=== PATIENT | female | born 1970 | race Caucasian/White ===

== ENCOUNTER → 2020-10-26 | Outpatient (CLI) | payer OTHER ==
[~2020-10-26] VITALS: Ht 15.2 cm; Wt 99.7 kg
[~2020-10-26] MED LIST: ALEVE220 M1 PO; LEVO-T75 MCG PO; NABUMETONE 500500 M2 PO
[2020-10-26 08:59] VITALS: BP 124/93
--- NOTE | 2020-10-26 09:13 | NUR ---
Pain Clinic Assessment: 1. History of Osteoarthritis: NOT SURE NO IMAGING YET History of Rheumatoid Arthritis: NO 2. Height: 5 ft. 6 in. 15.2 cm. Weight: 219.8 lb. oz. 99.701 kg. Patient's BMI: 4315.3 3. Vital Signs: BP: 124/93 Pulse: 91 Resp: 16 Temp: 02 Sat: 96 ECG Mon: 4. Pain Intensity: 4 5. Fall Risk: Dizziness: N Needs help standing or walking: N Fallen in the last 3 months: N Fall risk comments: 6. Patient on Blood Thinner: None 7. History of Hypertension: N 8. Opioid Therapy greater than 6 weeks: N Opiate Contract Signed: 9. Risk Assessment Tool Provided: LOW-3 10. Functional Assessment Tool: 56/70 11. Recreational Drug Use: Never Drug Type: Tobacco Use: Never Smoker Tobacco Type: Amount or Packs/day: How Many Years: Alcohol Use: Yes Frequency: Monthly Quant: 1
--- NOTE | 2020-11-02 08:22 | HPC ---
[facility] [place] [address] PAIN MANAGEMENT CONSULTATION Name: MAZIN BALTAZAR Room #: REG Estevan Kan#: [id number] Admission: 10/26/20 Attend Phys: Pavan Lowery DO Discharge: Date of : 70 Report #: [id number] THIS REPORT FOR: cc: FAM - Family physician unknown FAM - Family physician unknown Pavan Lowery DO ~ DOC #: [id number] cc: ELVA Hanson DO DATE OF SERVICE: 10/26/2020 DATE OF SERVICE: 10/26/2020 CHIEF COMPLAINT: Right low back pain, right foot pain. HISTORY OF PRESENT ILLNESS: As you know, the patient is a very pleasant 50-year-old female who reports acute onset of low back pain, right sacroiliac joint pain, and right foot pain, which began summer. The patient denies specific injury or trauma. She reports she had had physical therapy in late March or April for 3 months. This provided some improvement. She is continuing to do home exercises and working out at a home gym, but even with this treatment, her symptoms continue. She sought evaluation through neurosurgery and advised to try a conservative treatment approach before moving forward with any type of surgical options. The patient was subsequently referred to our clinic to discuss treatment options. The patient reports today her pain is intermittent, mainly with standing or sitting for long periods of time. The pain is described as more of an aching sensation. She places current pain score 4/10, daily average anywhere from 0-7/10, worst pain has been is 8/10. The patient has palpatory tenderness directly over the right sacroiliac joint. Deep palpation in area causes intensification of pain. She is able to localize symptoms to that region. She has been referred to our service to discuss treatment options for this chronic right low back symptom that began without inciting injury or trauma. PAST MEDICAL HISTORY: 1. Chronic anemia. 2. Hypertension. 3. Hypothyroidism. PAST SURGICAL HISTORY: section in 1994, 1996, and 2004; tonsillectomy in 1990. SOCIAL HISTORY: The patient denies tobacco use. Denies IV or illicit drug use. Admits to an occasional alcohol beverage. She is employed as a registered nurse. She is working, not receiving workmen's compensation, nor is she trying [address] [address] PAIN MANAGEMENT CONSULTATION Name: GIOVANNYJOHN Room #: REG PRASANTH Kan#: [id number] Admission: 10/26/20 Attend Phys: Pavan Lowery DO Discharge: Date of : 70 Report #: [id number] to obtain disability benefits. Not in litigation in regards to pain. She is unaccompanied at today's visit. REVIEW OF SYSTEMS: Positive for weight gain, wearing corrective eyewear, lactulose intolerance with abdominal pain, thyroid disease requiring medication management, chronic anemia, low back pain, right buttock pain. All other review of systems negative per 12-point review of systems other than those listed in history of present illness. Pain impact score 56/70 indicating severe interference of daily activities secondary to pain. ALLERGIES: SULFA. CURRENT MEDICATIONS: Naproxen sodium 220 mg once a day, levothyroxine 75 mcg per day, Mirena IUD. IMAGING: No imaging available. PHYSICAL EXAMINATION: VITAL SIGNS: Blood pressure 124/93, pulse 91, respiratory rate 16 and unlabored. The patient is 96% on room air. Height 5 feet 6 inches tall, weight 219.8 pounds, BMI calculated and on chart. HEENT: Normocephalic, atraumatic. Pupils equal, round, and reactive to light. Extraocular muscles are intact. Sclerae nonicteric without injection. She is wearing a mask in compliance with COVID-19 regulations. Speech is normal. She is deemed a good historian. LUNGS: Clear. No wheezing, rhonchi, or rales. CARDIOVASCULAR: Regular. No appreciable gallop, no rub. ABDOMEN: Soft, mildly obese, normoactive bowel sounds. EXTREMITIES: Show no clubbing, no cyanosis, and no edema. MUSCULOSKELETAL: Palpatory tenderness is noted over the right sacroiliac joint, negative left. Deep palpation of this area causes intensification of pain with radiation down the lateral portion of the thigh consistent with an SI joint dysfunction. Seated straight leg raising negative. Supine straight leg raising negative. TU's test is negative for intrinsic hip pathology, positive for SI joint pain. Thigh thrust maneuver on the right positive for pain. Eugenio's test positive on the right. Positive for right SI joint pain. There is noted a leg-length discrepancy with right leg compared to the left leg with a 1 cm differential. Gait is mildly antalgic favoring right lower extremity over left. ASSESSMENT: 1. Right sacroiliac joint dysfunction. 2. Chronic axial back pain. 3. Pelvic unleveling. 4. A leg length discrepancy. PLAN: [facility] [address] [place] [address] PAIN MANAGEMENT CONSULTATION Name: MAZIN BALTAZAR Room #: REG CLI Thomas.#: [id number] Admission: 10/26/20 Attend Phys: Pavan Lowery DO Discharge: Date of : 70 Report #: [id number] 1. Based on today's physical exam, the history the patient has provided, the distribution of symptoms the patient is experiencing, and the descriptions the patient uses in regards to the pain, it would appear she is suffering from sacroiliac joint dysfunction secondary to a leg length discrepancy. The patient and I discussed at length the treatment options we have for SI joint dysfunction as well as the leg length discrepancy that is noted on physical exam today. The following was discussed with the patient. We discussed physical therapy, stretching exercises, manipulation of the pelvis and SI joint with both active and passive exercise program. We discussed medication management utilizing anti-inflammatory medication on a consistent basis and the use of pain medication on a p.r.n. basis. We discussed intra-articular SI joint injection as well as fusion of the sacroiliac joints, either percutaneously or a surgical approach. We also discussed leg length discrepancy with the patient today, which would require an orthotic to be implanted with a progressive increase in lift height leveling out of the pelvis area and improving the sacroiliac joint pain. After reviewing the risks and benefits of all the proposed treatment options, the patient chose to begin with conservative treatment course. 2. The patient was provided a prescription of nabumetone 500 mg dose one tab p.o. t.i.d. I have recommended that patient take this consistently. She will watch for dyspepsia, worsening of blood pressure, or lower extremity edema with use of the medication. I have given the patient #90 tablets with 2 refills. If the patient finds this effective for pain control, she should reduce to the lowest dose possible to maintain analgesic benefit. 3. We will be sending the patient for a referral for podiatry to evaluate and treat for orthotics to correct leg length discrepancy and ongoing foot pain. She will follow up with podiatry at her earliest convenience. We recommend that she see them in regards to orthotics, as they can provide the leg length changes necessary over a period of time, but also specialize the orthotic to the patient so that she can improve her bilateral foot pain. 4. We will begin the process of authorization to have the patient be able to undergo right sacroiliac joint injection under fluoroscopic guidance. We will begin this process immediately. It could take anywhere from 4-7 working days. We are hopeful that this process will be completed quickly and the patient can undergo the injection. The patient will contact our clinic if she wishes to delay this option for more conservative approach. 5. We recommend the patient follow up with either her physical therapist or she could be seen at [facility] for pelvic manipulation and SI joint manipulation. This could be quite beneficial. She will follow up with her physical therapist first. If they do not offer this as a treatment option, she can contact [facility] for an appointment to be seen. It does not require a referral. 6. We wish to thank nurse practitioner, Lou Lima, for the opportunity to see the patient in consultation. We will keep you apprised of response to treatment as we address right sacroiliac joint dysfunction and leg length discrepancies. Again, we wish to thank you for the opportunity to see the [address] [address] PAIN MANAGEMENT CONSULTATION Name: MAZIN BALTAZAR Room #: REG PRASANTH Kan#: [id number] Admission: 10/26/20 Attend Phys: Pavan Lowery DO Discharge: Date of : 70 Report #: [id number] patient in consultation. Pavan Lowery DO JEJ/VIS <ELECTRONICALLY SIGNED> By: Pavan Lowery DO 11/02/20 0822 [id number] Pavan Lowery DO /
== END ==
LOC: PAIN 08:31
PROVIDERS: ATTEND Anesthesiology Pain Medicine
DX: M54.5 Low back pain (principal); M79.671 Pain in right foot; I10 Essential (primary) hypertension; E03.9 Hypothyroidism, unspecified; Z88.2 Allergy status to sulfonamides; Z79.899 Other long term (current) drug therapy; Z79.891 Long term (current) use of opiate analgesic

== ENCOUNTER → 2021-02-21 | Outpatient (CLI) | payer OTHER ==
[~2021-02-21] VITALS: Ht 167.6 cm; Wt 101.6 kg
--- NOTE | ~2021-02-21 | HPC ---
[facility] [address] [place] [place] [address] PAIN MANAGEMENT CONSULTATION Name: MAZIN BALTAZAR Room #: REG Estevan Kan#: [id number] Admission: 02/21/21 Attend Phys: Pavan Lowery DO Discharge: Date of : 70 Report #: [id number] THIS REPORT FOR: cc: BRAYDEN - Family physician unknown FAM - Family physician unknown Pavan Lowery DO ~ cc: Lou Lima DATE OF SERVICE: 02/21/2021 REFERRING NURSE PRACTITIONER: Lou Lima NP CHIEF COMPLAINT: Right low back pain and right foot pain. HISTORY OF PRESENT ILLNESS: As you know, the patient is a very pleasant 50-year-old female who reports acute onset of right low back pain and right foot pain began in the summer of 2019. She denies specific injury or trauma. She reports she had physical therapy late in March or 04/2020 lasting for over 3 months, but did not notice much in the way of improvement. She sought evaluation through neurosurgery who referred the patient on to our clinic to discuss interventional treatment options to address her chronic right back pain. We saw the patient in consultation on 10/26/2020, diagnosed with axial back pain due to facet arthropathy and right sacroiliac joint dysfunction. She chose to begin with medication management. We started the patient on nabumetone, which has provided some benefit. The patient returns today in followup visit to discuss other treatment options. She is placing current pain score 4-8/10. The patient denies new injury or trauma or any changes in medication management since her last visit. ALLERGIES: SULFA. CURRENT MEDICATIONS: Nabumetone 500 mg up to 3 times a day, levothyroxine 75 mcg once a day. SOCIAL HISTORY: The patient denies tobacco use. Denies IV or illicit drug use. Admits occasional alcohol beverage. She is employed as a registered nurse, working, not receiving workmen's compensation, unaccompanied today. IMAGING: No new imaging available. PHYSICAL EXAMINATION: VITAL SIGNS: Blood pressure 133/89, pulse 91, respiratory rate 16 and unlabored. The patient is 98% on room air. Height 5 feet 6 inches tall, weight 224 pounds, BMI calculated 36.2. GENERAL: Well-developed, well-nourished, well-hydrated 50-year-old female appearing stated age, pain is rated today around 4-8/10. HEENT: Normocephalic, atraumatic. Pupils equal, round and responsive. [facility] [address] [place] [address] PAIN MANAGEMENT CONSULTATION Name: MAZIN BALTAZAR Room #: REG CLI M.R.#: [id number] Admission: 02/21/21 Attend Phys: Pavan Lowery DO Discharge: Date of : 70 Report #: [id number] EXTREMITIES: Show no clubbing, no cyanosis. No appreciable edema. MUSCULOSKELETAL: Lower extremity strength equal and symmetrical, 5/5 intact to light touch from L1 through S2 dermatomes. There is palpatory tenderness over the facet joints of the lower lumbar spine, specifically on the right side. Lumbar provocation testing is met with increasing axial back pain. There is some palpatory tenderness over the SI joint, but this is greatly reduced from previous evaluation. Seated straight leg raising negative. Supine straight leg raising is negative. ASSESSMENT: 1. Chronic axial back pain due to facet arthropathy. 2. Facet arthropathy of lumbar spine. 3. Lumbosacral spondylosis without radiculopathy. 4. Right sacroiliac joint dysfunction. 5. Pelvic unleveling. 6. Chronic intractable pain. PLAN: 1. The patient returns today in followup visit to discuss options for treatment to address axial back pain located over the facet joint at L4-5 and L5-S1 on the right side. She has exquisite tenderness to palpation over this area consistent with facet arthropathy symptoms. Lumbar provocation testing is also positive for facet arthropathy pain. We discussed with the patient treatment options today. Following was discussed with the patient. 2. We discussed physical therapy, stretching exercise, core strengthening and a concerted effort at weight loss as a treatment option. We discussed continuing nonsteroidal anti-inflammatories in hopes of improving pain. We discussed intraarticular diagnostic facet injections and we also discussed medial branch nerve blocks and radiofrequency lesioning. After reviewing the risks and benefits of all proposed treatment options, the patient chose to begin with diagnostic intra-articular facet injections to be addressing the L4-L5 and L5-S1 facets on the right side. 3. The patient was advised due to third libertarian payer restrictions authorization would have to be obtained before the patient can undergo diagnostic intraarticular facet injections to address the L4-5 and L5-S1 level on the right side. We will begin that process immediately. I am hopeful this could be done quickly and the patient can return to undergo the procedure for diagnostic purposes. 4. The patient did receive a refill of her nabumetone 500 mg dose 1 tab p.o. t.i.d., given the patient #90 tablets. She will take the medication as directed. She is not to deviate from prescription parameters for the next couple of days as we await the diagnostic injection. 5. We will see the patient back in followup visit once we have achieved [address] [address] PAIN MANAGEMENT CONSULTATION Name: MAZIN BALTAZAR Room #: REG CLI Thomas.#: [id number] Admission: 02/21/21 Attend Phys: Pavan Lowery DO Discharge: Date of : 70 Report #: [id number] authorization for her to undergo a right L4-5, L5-S1 diagnostic intra-articular facet injections. By: [id number] Pavan Lowery DO /nt
[2021-02-21 13:12] VITALS: BP 133/89
--- NOTE | 2021-02-21 13:29 | NUR ---
Pain Clinic Assessment: 1. History of Osteoarthritis: NOT SURE NO IMAGING YET History of Rheumatoid Arthritis: NO 2. Height: 5 ft. 6 in. 167.6 cm. Weight: 224.0 lb. oz. 101.606 kg. Patient's BMI: 36.2 3. Vital Signs: BP: 133/89 Pulse: 91 Resp: 16 Temp: 02 Sat: 98 ECG Mon: 4. Pain Intensity: 4-8 5. Fall Risk: Dizziness: N Needs help standing or walking: N Fallen in the last 3 months: N Fall risk comments: 6. Patient on Blood Thinner: None 7. History of Hypertension: N 8. Opioid Therapy greater than 6 weeks: N Opiate Contract Signed: 9. Risk Assessment Tool Provided: LOW-3 10. Functional Assessment Tool: 56/70 11. Recreational Drug Use: Never Drug Type: Tobacco Use: Never Smoker Tobacco Type: Amount or Packs/day: How Many Years: Alcohol Use: Yes Frequency: Quant:
== END ==
LOC: PAIN 11-15 06:55
PROVIDERS: ATTEND Anesthesiology Pain Medicine
DX: G89.29 Other chronic pain (principal); M47.816 Spondylosis without myelopathy or radiculopathy, lumbar region; M47.817 Spondylosis without myelopathy or radiculopathy, lumbosacral region; M53.3 Sacrococcygeal disorders, not elsewhere classified; M95.5 Acquired deformity of pelvis

== ENCOUNTER → 2021-03-08 | Outpatient (CLI) | payer OTHER ==
[~2021-03-08] VITALS: Ht 167.6 cm; Wt 101.2 kg
[2021-03-08 08:27] VITALS: BP 128/93
--- NOTE | 2021-03-08 08:43 | NUR ---
Pain Clinic Assessment: 1. History of Osteoarthritis: NOT SURE NO IMAGING YET History of Rheumatoid Arthritis: NO 2. Height: 5 ft. 6 in. 167.6 cm. Weight: 223.2 lb. oz. 101.243 kg. Patient's BMI: 36.0 3. Vital Signs: BP: 128/93 Pulse: 86 Resp: 16 Temp: 02 Sat: 98 ECG Mon: 4. Pain Intensity: 2-8 w/activity 5. Fall Risk: Dizziness: N Needs help standing or walking: N Fallen in the last 3 months: N Fall risk comments: 6. Patient on Blood Thinner: None 7. History of Hypertension: N 8. Opioid Therapy greater than 6 weeks: N Opiate Contract Signed: 9. Risk Assessment Tool Provided: LOW-3 10. Functional Assessment Tool: 56/70 11. Recreational Drug Use: Never Drug Type: Tobacco Use: Never Smoker Tobacco Type: Amount or Packs/day: How Many Years: Alcohol Use: Yes Frequency: Quant:
--- NOTE | 2021-03-14 15:04 | HPC ---
[address] [address] PAIN MANAGEMENT CONSULTATION Name: MAZIN BALTAZAR [id number] Admission: 03/08/21 Attend Phys: Pavan Lowery DO Discharge: Date of : 70 Report #: [id number] THIS REPORT FOR: cc: FAM - Family physician unknown FAM - Family physician unknown Pavan Lowery DO ~ cc: Lou Lima NP DATE OF SERVICE: 03/08/2021 CHIEF COMPLAINT: Right low back pain. HISTORY OF PRESENT ILLNESS: As you know, the patient is a very pleasant 50-year-old female, reports acute onset of low back pain that began in summer of 2019. Denies specific injury or trauma. The patient was seen in consultation per the request of Neurosurgery on 02/21/2021, diagnosed with axial back pain due to facet arthropathy. She was established today's appointment to undergo diagnostic L4-L5, L5-S1 intraarticular facet injections under fluoroscopic guidance to address her right axial back pain. The patient indicates today her pain at up to 2-8/10 depending on activity. She has had no changes in her medication management that preclude the patient from undergoing an injection today. We have received authorization through the patient's third libertarian payer for her to undergo these diagnostic blocks. She returns today to undergo the first in the series. ALLERGIES: SULFA. CURRENT MEDICATIONS: Nabumetone 500 mg 3 times a day, levothyroxine 75 mcg per day. SOCIAL HISTORY: The patient denies tobacco. Denies IV or illicit drug use. Admits occasional alcohol beverage. She is employed as a registered nurse, working, not receiving workmen's compensation, unaccompanied today. IMAGING: No new imaging available. PHYSICAL EXAMINATION: VITAL SIGNS: Blood pressure 120/93, pulse is 86, respiratory rate 16 and unlabored. The patient 98% on room air. Height 5 feet 6 inches tall, weight 223.8 pounds, BMI calculated 36.0. GENERAL: Well-developed, well-nourished, well-hydrated exogenously obese 50-year-old female appearing stated age. Pain is rated anywhere from 2-8/10 depending on activity. HEENT: Normocephalic, atraumatic. She is wearing a mask in compliance with COVID-19 regulations. EXTREMITIES: Show no clubbing, no cyanosis. No appreciable edema. MUSCULOSKELETAL: Once again, the patient has palpatory tenderness over the [facility] [address] [place] [address] PAIN MANAGEMENT CONSULTATION Name: MAZIN BALTAZAR Room #: REG CL Lucius#: [id number] Admission: 03/08/21 Attend Phys: Pavan Lowery DO Discharge: Date of : 70 Report #: [id number] facet joints of the lower lumbar spine on the right. Lumbar provocation testing including rotation and lateral flexion to the right intensify pain. Negative left. There is mild palpatory tenderness over the SI joint on the right, which is present again today. Seated straight leg raising negative. Supine straight leg raising negative. Muscle bulk and tone is equal and symmetrical in lower extremities. She remains intact to light touch from L1 through S2 dermatomes. ASSESSMENT: 1. Chronic axial back pain (right sided). 2. Facet arthropathy of lumbar spine. 3. Lumbosacral spondylosis without radiculopathy. 4. Mild right sacroiliac joint dysfunction. 5. Pelvic unleveling. 6. Chronic intractable pain. PLAN: 1. The patient returns today in followup visit having received authorizations to undergo right L4-L5, L5-S1 intraarticular diagnostic facet injections under fluoroscopic guidance. The patient has been advised of the risks and the benefits of this procedure. These risks include but are not necessarily limited to bleeding, bruising, infection, worsening pain, no relief of pain, also risk of temporary or permanent muscle weakness, temporary or permanent nerve damage, possible paralysis, and . The patient states understood and wished to proceed. 2. No medication changes made at today's visit. The patient will continue current medical therapy as prior prescribed. 3. We plan to see the patient back in followup visit in 1 month. At that time, review the efficacy of these diagnostic blocks and determine whether or not further treatment will be necessary including possible medial branch nerve blocks and moving towards radiofrequency lesioning, if her symptoms were only transient in nature. We will see her back in 1 month. We will keep you apprised of response. PROCEDURE NOTE: DESCRIPTION OF PROCEDURE: Right L4-L5, L5-S1 diagnostic intraarticular facet injections under fluoroscopic guidance. This is the first procedure of the first series that the patient is undergoing. After obtaining written consent, the patient was taken back to the fluoroscopy suite and placed in a prone position with a pillow under the abdomen to decrease the lumbar lordosis and to facilitate needle entry into the facet joints. The skin overlying the lumbosacral area was prepped and draped in an aseptic fashion. AP and lateral fluoroscopic imaging was obtained. Optimal position of the fluoroscope occurred when the joint line was first visualized. [address] [address] PAIN MANAGEMENT CONSULTATION Name: MAZIN BALTAZAR Room #: REG PRASANTH Kan#: [id number] Admission: 03/08/21 Attend Phys: Pavan Lowery DO Discharge: Date of : 70 Report #: [id number] The facet joints were identified radiographically directed adjacent to the superior articular process of the caudad vertebrae. The skin overlying the target site(s) of injection was anesthetized using 3 mL of 1% lidocaine. A 22-gauge 3.5-inch spinal needle with a bent tip was advanced towards the L4-L5 and L5-S1 facet joints on the right side under fluoroscopic guidance. The firm posterior capsule had its characteristic feel and the needle was advanced a few additional millimeters beyond the joint capsule into the joint space, but not into the articular cartilage. After the joint space was entered and aspiration was negative for heme or CSF, 0.2 mL of Omnipaque was injected demonstrating a characteristic facet arthrogram. After negative aspiration for heme or CSF, 1.5 mL of a solution containing 2 mL 40 mg per mL 80 mg total triamcinolone and 2 mL of bupivacaine 0.5% was slowly injected at each of 2 facets. The needle(s) was then removed. There were no apparent complications. The patient tolerated the procedure well and was carefully escorted to the recovery room in stable condition. The VAS was 3-8/10 before the procedure and 1/10 ten minutes after the procedure. After meeting discharge criteria, the patient was discharged home. <ELECTRONICALLY SIGNED> By: Pavan Lowery DO 03/14/21 1504 [id number] Pavan Lowery DO /nt
== END | disposition home or self-care (01) ==
LOC: PAIN 03-07 08:39
PROVIDERS: ATTEND Anesthesiology Pain Medicine
DX: M47.816 Spondylosis without myelopathy or radiculopathy, lumbar region (principal); M47.817 Spondylosis without myelopathy or radiculopathy, lumbosacral region; M53.3 Sacrococcygeal disorders, not elsewhere classified; M54.9 Dorsalgia, unspecified; G89.29 Other chronic pain; Z98.890 Other specified postprocedural states; Z79.899 Other long term (current) drug therapy; Z88.2 Allergy status to sulfonamides

== ENCOUNTER → 2021-04-04 | Outpatient (CLI) | payer OTHER ==
[~2021-04-04] VITALS: Ht 167.6 cm; Wt 100.2 kg
[2021-04-04 08:09] VITALS: BP 138/93
--- NOTE | 2021-04-04 08:28 | NUR ---
Pain Clinic Assessment: 1. History of Osteoarthritis: NOT SURE NO IMAGING YET History of Rheumatoid Arthritis: NO 2. Height: 5 ft. 6 in. 167.6 cm. Weight: 220.8 lb. oz. 100.154 kg. Patient's BMI: 35.7 3. Vital Signs: BP: 138/93 Pulse: 80 Resp: 14 Temp: 02 Sat: 98 ECG Mon: 4. Pain Intensity: 2-8 w/activity 5. Fall Risk: Dizziness: N Needs help standing or walking: N Fallen in the last 3 months: Y Fall risk comments: 6. Patient on Blood Thinner: None 7. History of Hypertension: N 8. Opioid Therapy greater than 6 weeks: N Opiate Contract Signed: 9. Risk Assessment Tool Provided: LOW-3 10. Functional Assessment Tool: 56/70 11. Recreational Drug Use: Never Drug Type: Tobacco Use: Never Smoker Tobacco Type: Amount or Packs/day: How Many Years: Alcohol Use: Yes Frequency: Special Occasions Quant:
--- NOTE | 2021-04-05 09:03 | HPC ---
[facility] [address] [address] PAIN MANAGEMENT CONSULTATION Name: MAZIN BALTAZAR Room #: REG CLEstevan Kan#: [id number] Admission: 04/04/21 Attend Phys: Pavan Lowery DO Discharge: Date of : 70 Report #: [id number] THIS REPORT FOR: cc: FAM - Family physician unknown FAM - Family physician unknown Pavan Lowery DO ~ DATE OF SERVICE: 04/04/2021 CHIEF COMPLAINT: Right low back pain. HISTORY OF PRESENT ILLNESS: As you know, the patient is a very pleasant 50-year-old female reporting acute onset of low back pain, which began in summer of 2019. No specific injury or trauma. We have seen the patient in consultation per the request of nurse practitioner, Lou Lima with neurosurgery of [facility] on 02/21/2021, diagnosed with axial back pain due to facet arthropathy. The patient has undergone L4-L5, L5-S1 intraarticular facet injection on the right side, which gave instant improvement in symptoms, but unfortunately, the patient was involved in a slip and fall accident 24 hours after undergoing the procedure and this led to recurrence of symptoms. She returns today in followup visit for medial branch nerve blocks to address the L2, L3, L4, L5 medial branch nerves on the right side. If this is unsuccessful, moving forward with radiofrequency lesioning of the medial branch nerves on the right. She places current pain today at a level of 2-8/10 depending on activity. ALLERGIES: SULFA. CURRENT MEDICATIONS: Levothyroxine 75 mcg p.r.n. SOCIAL HISTORY: The patient denies tobacco. Denies IV or illicit drug use. Admits to occasional alcohol beverage. She is employed as a registered nurse, working, not receiving workmen's compensation, unaccompanied today. IMAGING: No new imaging available. PHYSICAL EXAMINATION: VITAL SIGNS: Blood pressure 138/93, pulse 80, respiratory rate 14 and unlabored. The patient 98% on room air. Height 5 feet 6 inches tall, weight 220.8 pounds, BMI calculated 35.7. GENERAL: Well-developed, well-nourished, well-hydrated 50-year-old female, appears stated age. Pain is rated anywhere from 2-8/10. HEENT: Normocephalic, atraumatic. Pupils equal, round and responsive to light. Extraocular muscles are intact. She is wearing a mask in compliance with COVID-19 regulations. EXTREMITIES: Show no clubbing, no cyanosis, no edema. MUSCULOSKELETAL: Lower extremity strength is once again equal and symmetrical 5/5, intact to light touch from L1 through S2 dermatomes[place] [address] PAIN MANAGEMENT CONSULTATION Name: MAZIN BALTAZAR ANN Room #: TATIANNA Kan#: [id number] Admission: 04/04/21 Attend Phys: Pavan Lowery DO Discharge: Date of : 70 Report #: [id number] raising negative. Supine straight leg raising negative. Lumbar provocation testing including extension, rotation, lateral flexion to the right intensify right low back pain, no radiation of symptoms. ASSESSMENT: 1. Chronic axial back pain, right sided. 2. Facet arthropathy of lumbar spine. 3. Lumbosacral spondylosis without radiculopathy or myelopathy. 4. Chronic pelvic unleveling. 5. Mild right SI joint dysfunction. 6. Chronic intractable pain. PLAN: 1. The patient returns today in followup visit stating that the intra-articular facet injection at the L4-L5 and L5-S1 level on the right gave improvement in symptoms, but unfortunately, she was involved in a slip and fall accident in her bathtub that led to recurrence of the low back symptoms. She has been experiencing back pain since that time. She has not sought evaluation or treatment after the fall. She returns today in followup visit with axial back pain from the right side consistent with the facet joint at L4-L5 and L5-S1, which we had addressed in the past. We have made today's appointment for the patient to undergo L2, L3, L4, L5 medial branch nerve blocks on the right. If these are unsuccessful at alleviating symptoms, we would then move forward with radiofrequency lesioning given the fact that the patient had excellent benefit for about 24 hours with the intraarticular facet injection on the right side at our visit of 03/08/2021. The patient is agreeable with the plan. She has been advised risks and benefits of the medial branch nerve blocks and wishes to proceed. 2. No medication changes made at today's visit. The patient was given a prescription of nabumetone, which she has filled, but has not taken the first dose. We recommend strongly that the patient utilizes the treatment options available to determine if a more conservative option can alleviate symptoms. If they are unable to alleviate symptoms, surgical options may be her only option of treatment if she is not to avail herself of the more conservative treatment provided. 3. We will see the patient back in followup visit, assuming she receives greater than 70-80% improvement in overall symptoms with the medial branch blocks today for radiofrequency lesioning of the L2, L3, L4, L5 medial branch nerves on the right. PROCEDURE NOTE DESCRIPTION OF PROCEDURE: Right L2, L3, L4, L5 medial branch nerve block #2 in the series with fluoroscopy. This is the second of 2 diagnostic medial branch blocks on the right side that [facility] [address] [place] [address] PAIN MANAGEMENT CONSULTATION Name: MAZIN BALTAZAR Room #: REG PRASANTH Kan#: [id number] Admission: 04/04/21 Attend Phys: Pavan Lowery DO Discharge: Date of : 70 Report #: [id number] the patient is undergoing. After obtaining written consent, the patient was taken back to the fluoroscopy suite and placed in a prone position on the fluoroscopy table with a pillow under the abdomen to decrease the lumbar lordosis. The skin overlying the lumbosacral area was prepped and draped in an aseptic fashion. The L3 transverse process corresponding the L2 medial branch nerve, L4 transverse process corresponding the L3 medial branch nerve and the L5 transverse process corresponding the L4 medial branch nerve on the right side was visualized under AP fluoroscopy. The skin and subcutaneous tissue overlying the target sites of injection were anesthetized using 2 mL of 1% lidocaine. A 22-gauge 3-1/2 inch spinal needle with a bent tip was advanced under fluoroscopic guidance using a superior to inferior and lateral to medial approach to the dorsal, superior and medial aspect of the base of the transverse processes. The needles were then directed ventral, medial and caudad to reach the target location(s). An oblique view facilitated needle placement with properly positioned needles(s) in the middle of the "eye" of the Christoph dog for the medial branch block(s). At each site the needle(s) rested on periosteum. After negative aspiration for heme or CSF, 0.5 mL of bupivacaine 0.5% was slowly injected at each site to avoid forcing the solution away from the target points. The needles were then removed. The L5 dorsal ramus block on the right side was performed using a slightly oblique approach under fluoroscopic guidance, placing the needle within the groove between the sacral site and the superior articular process of S1. The needle rested on periosteum. After negative aspiration for heme or CSF 0.5mL of bupivacaine 0.5% was injected slowly to avoid forcing the solution away from the target point. Needle was then removed. Sterile bandages were placed over the injection site. There were no apparent complications. The patient tolerated the procedure well and was carefully escorted to the recovery room in stable condition. The VAS was 2-8/10 before the procedure and 0-1/10, 10 minutes after the procedure. After meeting discharge criteria, the patient was discharged home. <ELECTRONICALLY SIGNED> By: Pavan Lowery DO 04/05/21 [id number] Pavan Lowery DO /nt
== END | disposition home or self-care (01) ==
LOC: PAIN 07:00
PROVIDERS: ATTEND Anesthesiology Pain Medicine
DX: M47.816 Spondylosis without myelopathy or radiculopathy, lumbar region (principal); M47.817 Spondylosis without myelopathy or radiculopathy, lumbosacral region; M54.9 Dorsalgia, unspecified; M53.3 Sacrococcygeal disorders, not elsewhere classified; G89.29 Other chronic pain; Z98.890 Other specified postprocedural states; Z79.899 Other long term (current) drug therapy; Z88.2 Allergy status to sulfonamides